=== PATIENT | female | born 1955 | race Caucasian/White ===

== ENCOUNTER 2020-11-13 11:04 | Outpatient (CLI) | payer OTHER ==
[~2020-11-13 11:04] MED LIST: PREMARIN0.45 MG PO; SIMVALTA
== END 2020-11-13 13:49 | disposition home or self-care (01) ==
LOC: SONOGRAMA 11:04
PROVIDERS: ATTEND Pathology Anatomic Pathology & Clinical Pathology
DX: E04.1 Nontoxic single thyroid nodule (principal)

== ENCOUNTER 2021-03-30 13:06 | Outpatient (CLI) | payer OTHER | END 2021-03-30 14:45 | disposition home or self-care (01) | LOC: RAD 13:06 | PROVIDERS: ATTEND Neurological Surgery | DX: M54.5 Low back pain (principal) ==